=== PATIENT | male | born 1955 | race Caucasian/White ===

== ENCOUNTER 2017-12-15 18:53 | Observation (INO) ==
[2017-12-15] MEDS ORDERED: methylPREDNISolone SOD SUCC 125 MG/2 ML VIAL IV ONE (19:02)
[2017-12-15] MEDS ORDERED: diphenhydrAMINE 50 MG/ML VIAL IV ONE (19:03)
[2017-12-15] MEDS ORDERED: EPINEPHrine 1 MG/ML AMPUL IM ONE (19:03)
[2017-12-15] MEDS ORDERED: 0.9 % SODIUM CHLORIDE 1,000 ML IV ONE ×2 (19:05→20:06)
[2017-12-15] MEDS ORDERED: methylPREDNISolone SOD SUCC 125 MG/2 ML VIAL ONE (19:07)
[2017-12-15] MEDS ORDERED: diphenhydrAMINE 50 MG/ML VIAL ONE (19:08)
--- NOTE | 2017-12-15 19:42 | Emergency Department Note ---
Allergic Reaction HPI - General Chief complaint: Allergic Reaction Stated complaint: Bee Stings Time Seen by Provider: 12/15/17 19:00 Source: patient Mode of arrival: ambulatory Limitations: no limitations - History of Present Illness HPI Narrative: 62-year-old male was at home after going to the gym and went out in his yard to check on a worker. He slipped on a stone and fell scraping his right forearm. However at that time is also disturbed a wasp nests or similar he was stung 3 times. Twice on the right wrist. He went inside where his cared for him for a little bit but he and he developed hives in his throat started swelling so his brought him here. He received 25 mg of Benadryl 1 at home No previous bee sting allergy reported however he decompensated in triage and went [id number] over a minute. He was immediately brought back and resuscitation efforts were started Most history is from his as patient was somewhat incapacitated in anaphylactic shock - Related Data Home Medications Medication Instructions Recorded Confirmed ergocalciferol (vitamin D2) 50,000 5,000 unit PO BID cap 11/13/14 12/15/17 unit capsule vitamin S63-kljumxypu factor 110 1 cap PO BID 11/13/14 12/15/17 mg-0.5 mg capsule Previous Rx's Medication Instructions Recorded testosterone cypionate 100 mg/mL 150 mg IM Q2W #10 ml 09/27/16 intramuscular oil levothyroxine 200 mcg tablet 200 mcg PO QDAY #90 tab 10/14/16 carvedilol 12.5 mg tablet 12.5 mg PO BID #60 tab 10/31/17 Allergies Allergy/AdvReac Type Severity Reaction Status Date / Time bee venom protein (honey bee) Allergy Severe Anaphylaxis Verified 12/15/17 18:57 Seasonal Allergy Unknown Unknown Uncoded 10/07/16 08:28 Review of Systems Limitations: ROS unobtainable due to patients medical condition Past Medical History - Past Medical History Attestation: Yes: The following information was validated with the patient. 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/12) Cardiomyopathy (Chronic) CAD (coronary artery disease) (Chronic 08/11/06) Amblyopia (Chronic 02/19/14) Past Surgical History H/O angiography (Resolved 06/05/13) H/O cardiac catheterization (Resolved 06/07/13) History of angiography (Resolved 06/05/13) History of left heart catheterization (Resolved 06/07/13) History of umbilical hernia repair (Resolved 07/25/12) Hx of hernia repair (Resolved 07/25/12) Social History No Social History Section defined Family History Nephew Malignant neoplasm of brain Father Coronary artery disease Essential hypertension Mother Coronary artery disease Essential hypertension Brother Malignant neoplasm of lung Medical history: Reports: hypertension, hypothyroidism - Social History smoking status: Former smoker Alcohol use: Reports: None Drug use: Reports: none Physical Exam He was somewhat obtunded on my first exam and his face was cyanotic and he was having trouble breathing. Oxygen levels were in the 70s-please see resuscitation note under summary at the end of my document. After giving him oxygen epinephrine Solu-Medrol and Benadryl along with IV fluids cyanosis resolved breathing improved however hives remain from the head to the knees as well as bilateral upper extremities. He has a relatively large abrasion approximately 10 cm long and 3 cm wide very superficial with good hemostasis right forearm. He is otherwise normocephalic atraumatic. Conjunctive are mildly bilaterally injected but I do not see any trauma to here or the periorbital area. No nasal discharge or congestion. Oropharynx is pink and moist tongue is not edematous. Posterior pharynx is clear but Mallampati 3-4. Neck is supple without lymphadenopathy thyromegaly or carotid bruit. Heart is regular rate and rhythm no murmur appreciated. Lungs are clear to auscultation bilaterally without wheezes rales rhonchi. Defibrillator in place on abdomen is soft nontender nondistended. No peritoneal signs or guarding. He did have an episode of urinary incontinence when he was unconscious. Mental status is improved after getting epinephrine. No longer obtunded. Urticaria remains except face and lower legs below the knee Limitations: no limitations Course Vital Signs Pulse Rate 87 12/15/17 18:53 Respiratory Rate 23 H 12/15/17 18:53 Blood Pressure 58/35 12/15/17 18:53 Pulse Oximetry (%) 89 L 12/15/17 18:53 Pulse Rate 87 12/15/17 18:53 Respiratory Rate 23 H 12/15/17 18:53 Blood Pressure 58/35 12/15/17 18:53 Pulse Oximetry (%) 89 L 12/15/17 18:53 Allergic Reaction - Lab Data Lab results reviewed: Yes I reviewed the patient's lab results. Result diagrams: 12/15/17 19:06 12/15/17 19:06 Lab Results 12/15/17 12/15/17 12/15/17 Range/Units 19:06 19:06 19:13 WBC 8.6 (4.5-11.0) K/mcL RBC 6.88 H (4.50-5.90) M/mcL Hgb 20.6 H* (13.5-16.5) g/dL Hct 62.1 H (41.0-55.0) % MCV 90.2 (80.0-100.0) fL MCH 29.9 (26.0-34.0) pg MCHC 33.1 (31.0-36.0) g/dL RDW 14.6 H (11.5-14.5) % Plt Count 208 (140-440) K/mcL MPV 8.3 (7.4-10.4) fL Gran % 44.5 (38.0-78.0) % Lymph % (Auto) 45.5 (15.5-49.0) % [place] % (Auto) 8.8 (1.0-12.0) % Eos % (Auto) 1.0 (0.0-7.0) % Baso % (Auto) 0.2 (0.0-2.0) % Gran # 3.8 (1.8-8.0) K/mcL Lymph # (Auto) 3.9 (1.5-4.8) K/mcL [place] # (Auto) 0.8 (0.1-0.9) K/mcL Eos # (Auto) 0.1 (0.0-0.7) K/mcL Baso # (Auto) 0 (0.0-0.3) K/mcL VBG Lactic Acid 3.5 H (0.5-2.2) mmol/L Sodium 135 (133-145) mmol/L Potassium 5.1 (3.3-5.1) mmol/L Chloride 96 (96-108) mmol/L Carbon Dioxide 22 (22-30) mmol/L Anion Gap 17.0 H (8-16) BUN 11 (8-23) mg/dl Creatinine 1.3 H (0.7-1.2) mg/dl GFR Calculation 58 Glucose 103 (70-105) mg/dL Calcium 9.4 (8.6-10.4) mg/dl Total Bilirubin 0.5 (0.0-1.0) mg/dL AST 45 H (0-37) U/l ALT 31 (0-40) U/l Alkaline Phosphatase 50 (39-117) U/L Total Protein 7.1 (5.9-8.4) gm/dL Albumin 4.2 (3.2-5.2) gm/dL Globulin 2.9 (2.2-3.7) gm/dL Albumin/Globulin Ratio 1.4 (1.0-2.3) VBG is done as we had difficulty finding a pulse to get an arterial gas. PH was 7.45 PCO2 35 PO2 was 112 these values more consistent with an arterial gas and some was hyperventilated on oxygen however we know this is a VBG because we took it from a venous line - Radiology Data Radiology results reviewed: Yes I reviewed the patient's radiology results. Chest x-rays one view portable shows some pulmonary congestion but seems overexposed. Blood gas is inconsistent with clinical picture and chest x-ray so CT scan is ordered to further sort this out - EKG Data EKG attestation: Yes I reviewed and interpreted this EKG. EKG results narrative: EKG shows sinus rhythm with a rate of 88, left atrial enlargement. There is a Q -wave in V1 and V2 Critical Care Time Critical Care Time: Yes Total Critical Care Time: 45 Attestation: 45 minutes critical care time not including initial resuscitation. This includes documentation, discussion of results with the family, serial evaluation and coordination of care Disposition Pt seen by WAREHOUSE LOADER/PA only: No Clinical Impression: Urticaria, Elevated hemoglobin Anaphylaxis Qualifiers: Encounter type: initial encounter Qualified Code(s): T78.2XXA - Anaphylactic shock, unspecified, initial encounter Hymenoptera sting Qualifiers: Encounter type: initial encounter Injury intent: accidental or unintentional Qualified Code(s): T63.481A - Toxic effect of venom of other arthropod, accidental (unintentional), initial encounter Respiratory failure Qualifiers: Chronicity: acute Respiratory failure complication: hypoxia Qualified Code(s): J96.01 - Acute respiratory failure with hypoxia Summary: Initial resuscitation included epinephrine 0.3 IM injection 1, IV 25 mg Benadryl (so he received a total of 50 ), 125 mg of IV Solu-Medrol and IV fluids. He was having trouble breathing with oxygen saturations in the 70s and 80s with a cyanotic face trouble breathing with swelling of his airway mouth- this gradually improved. He was also hypotensive with a blood pressure 61/41 when he got back to the room. This went up to 79/49 and then finally 97/73 as he turned around and started improving. He then became cold and started shaking. He was given warm blankets as continued to improve He stabilized and so we were able to reduce his oxygen supplementation to 3 L. Chest x-ray showed some pulmonary congestion and his blood gas did not really fit with what we are seeing clinically so CT scan is ordered. This is pending at the time of shift change and so patient will be checked out to Dr. Uriarte for further care and disposition-he will likely need further monitoring overnight in the ICU due to this episode of anaphylactic shock Note: Hemoglobin likely elevated secondary to testosterone supplementation Disposition: Still a Patient Condition: Critical Referrals: Kelvin Elkins PA-C [Primary Care Provider] -
[2017-12-15 19:44] LABS: Basophils # (Auto) 0 K/mcL (0.0-0.3); Basophils % (Auto) 0.2 % (0.0-2.0); Eosinophils # (Auto) 0.1 K/mcL (0.0-0.7); Granulocytes % (Auto) 44.5 % (38.0-78.0); Lymphocytes # (Auto) 3.9 K/mcL (1.5-4.8); Lymphocytes % (Auto) 45.5 % (15.5-49.0); Mean Cell Volume 90.2 fL (80.0-100.0); Mean Corpuscular HGB Conc 33.1 g/dL (31.0-36.0); Mean Corpuscular Hemoglobin 29.9 pg (26.0-34.0); Monocytes # (Auto) 0.8 K/mcL (0.1-0.9); Monocytes % (Auto) 8.8 % (1.0-12.0); Platelet Count 208 K/mcL (140-440); RBC 6.88 M/mcL (4.50-5.90); Red Cell Distribution Width 14.6 % (11.5-14.5)
[2017-12-15 20:05] LABS: ALT/SGPT 31 U/l (0-40); Albumin 4.2 gm/dL (3.2-5.2); Albumin/Globulin Ratio 1.4 (1.0-2.3); Alkaline Phosphatase 50 U/L (39-117); Blood Urea Nitrogen 11 mg/dl (8-23)
--- NOTE | 2017-12-15 22:47 | Internal Med History&Physical ---
Medical - H&P: [facility] Patient information: Note initiated : 12/15/17 at 10:46 pm Service Date, if different from initiated Date: [] Patient: Jayant Andrews 62 y/o M admitted on for Bee Stings. Chief Complaint: Hives and lightheadedness after bee sting History of present illness: Mr. Andrews is a 62 year old M the history of cardiomyopathy and ventricular arrhythmia, hypertension, hypothyroidism who presented to the emergency department following a reaction to likely yellow jacket sting. History is obtained in speaking with the patient, as well as his , as well as reviewing the record. Patient returned from the gym today, when around the house to check on someone who is working there, apparently tripped and disturbed a block, which was covering a yellow jackets nest. They started swarming the patient, he ran into the house, however was stung at least 3 times, 2 in the left arm, 1 the upper torso. Patient also experienced an abrasion to the right arm when he fell. Patient initially felt okay, after about 15 minutes started to itch, and subsequently started to develop hives. He took 25 mg of diphenhydramine. He went to take a shower, however the itching worsened and his mouth started swelling. His transported him to the ED, by the time he arrived, he is starting to feel lightheaded and his vision was blurry. He continued to have hives. In the ED, upon arrival, he was cyanotic, initial blood pressure was in the 60s systolic. He received epinephrine, 125 mg of Solu-Medrol, 25 mg of diphenhydramine. Also received fluid resuscitation. His blood pressure responded to these interventions, his oxygen saturations picked up and he improved. He is now being hospitalized for further observation following anaphylaxis. Currently the patient is complaining of a dry mouth. Denies any headache, vision changes, sore throat, dyspnea, cough, sputum production, nausea, vomiting , abdominal pain, diarrhea, dysuria. He no longer has hives. He has no pruritus. There is some pain at the site of the stings. No focal neurologic symptoms. 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 No particular family history of allergic reactions Social history: The patient works in equipment rental sales. Stopped smoking 1979. He seldom drinks alcohol. Medical - H&P: Meds Home Medications Medication Instructions Recorded Confirmed Type ergocalciferol (vitamin D2) 50,000 5,000 unit PO BID cap 11/13/14 12/15/17 History unit capsule vitamin U76-vfyzioqiw factor 110 1 cap PO BID 11/13/14 12/15/17 History mg-0.5 mg capsule testosterone cypionate 100 mg/mL 150 mg IM Q2W #10 ml 09/27/16 12/15/17 Rx intramuscular oil levothyroxine 200 mcg tablet 200 mcg PO QDAY #90 tab 10/14/16 12/15/17 Rx carvedilol 12.5 mg tablet 12.5 mg PO BID #60 tab 10/31/17 12/15/17 Rx Allergies Allergy/AdvReac Type Severity Reaction Status Date / Time bee venom protein (honey bee) Allergy Severe Anaphylaxis Verified 12/15/17 18:57 Seasonal Allergy Unknown Unknown Uncoded 10/07/16 08:28 Medical - H&P: Exam - Constitutional Vitals: Pulse Resp BP Pulse Ox 81 33 H 122/77 96 12/15/17 22:44 12/15/17 22:44 12/15/17 22:44 12/15/17 22:44 Exam: GENERAL: Alert, oriented, in no acute distress at the time of my exam. Cooperative, appears stated age. HEENT: Atraumatic. PERRL, conjunctiva clear, no scleral icterus. Hearing grossly intact. Oropharynx with moist mucous membranes, no lip or gum lesions, no pharyngeal erythema or exudate. Tongue midline, palate rises symmetrically. NECK: Supple without meningismus, no thyromegaly RESPIRATORY: Breath sounds clear bilaterally without wheezes or rhonchi. Respiratory effort is unlabored. CARDIOVASCULAR: Regular rate and rhythm, no murmur gallop or rub. No peripheral edema. Carotid pulses 2+ without bruit. Pedal pulses 2+. Left subclavicular defibrillator in place. GI: Abdomen obese, soft, nontender, no guarding or rebound. Bowel sounds are present. No hepatosplenomegaly, exam is limited by body habitus. LYMPHATIC: No cervical or supraclavicular lymphadenopathy MUSCULOSKELETAL: No joint erythema or swelling, normal range of motion in extremities. Muscle mass normal. Strength 5/5 in the upper and lower extremities. SKIN: Warm, dry, no urticarial lesions. Abrasion right forearm. Skin turgor normal. NEUROLOGIC: Cranial nerves II through XII grossly intact. Sensation intact to light touch bilaterally. PSYCHIATRIC: Alert, oriented x3, normal affect, normal insight. Medical - H&P: Reslt - Labs CBC & Chem 7: 12/15/17 19:06 12/15/17 19:06 Labs: Short CBC 12/15/17 Range/Units 19:06 WBC 8.6 (4.5-11.0) K/mcL Hgb 20.6 H* (13.5-16.5) g/dL Hct 62.1 H (41.0-55.0) % Plt Count 208 (140-440) K/mcL BMP 12/15/17 19:06 Sodium 135 Potassium 5.1 Chloride 96 Carbon Dioxide 22 BUN 11 Creatinine 1.3 H Glucose 103 Calcium 9.4 Liver Function 12/15/17 Range/Units 19:06 Total Bilirubin 0.5 (0.0-1.0) mg/dL AST 45 H (0-37) U/l ALT 31 (0-40) U/l Alkaline Phosphatase 50 (39-117) U/L Albumin 4.2 (3.2-5.2) gm/dL - Imaging and Cardiology Chest x-ray Status: image reviewed by me (vascular prominence) CT scan - chest Status: image reviewed by me Additional comments: Preliminary report, diffuse bronchial wall thickening Medical - H&P: A/P (1) Polycythemia Current visit: Yes Status: Acute (2) Hymenoptera sting Current visit: Yes Status: Acute (3) Anaphylaxis Current visit: Yes Status: Acute - Narrative A/P Narrative: 62-year-old male presenting with anaphylaxis following envenomation by yellow jackets. Anaphylaxis. Resolved at this time. No current evidence of biphasic reaction, however given the severity of his presentation will monitor in the hospital overnight. Discussed need to have epinephrine pen available for treatment of any further similar episodes. The patient's currently saturating well on 2 L, may be weaned further. His radiograph was concerning for edema. Follow-up CT scan did show diffuse bronchial wall thickening. This likely is noncardiogenic edema related to his anaphylaxis. We'll need to monitor for evidence of worsening pulmonary function and development of ARDS. Plan: Hospitalized in observation, when necessary epinephrine if symptoms recur , monitor pulmonary status and oxygen needs. Envenomation by Hymenoptera. Causing anaphylaxis as above. Plan: As above. Polycythemia. Patient's hemoglobin 20, he's chronically had elevated hemoglobin over the last 3 years. He does have a history of sleep apnea, may be related to that, or to testosterone use. Primary polycythemia also possibility. Plan: We'll defer to primary care for further evaluation CODE STATUS: Full code
[2017-12-15] MEDS ORDERED: EPINEPHrine 1 MG/ML AMPUL IM PRN (23:07)
[2017-12-15] MEDS ORDERED: diphenhydrAMINE 50 MG/ML VIAL IV PRN (23:07)
[2017-12-15] MEDS ORDERED: ACETAMINOPHEN 325 MG TABLET PO PRN (23:07)
[2017-12-15] MEDS ORDERED: ONDANSETRON 4 MG/2 ML VIAL IV PRN (23:07)
[2017-12-15] MEDS ORDERED: ALBUTEROL SULFATE 2.5 MG/3 ML NEBULIZER NEB PRN (23:07)
[2017-12-16 00:02] LABS: Appearance,Urine CLEAR; Bacteria,Urine 0 /hpf (0); Bilirubin,Urine NEG (NEG); Color,Urine YELLOW; Glucose,Urine (UA) NEGATIVE (NEG); Leukocyte Esterase,Urine NEG /uL (NEG); Mucus,Urine FEW /hpf (0); Protein,Urine 30 mg/dL (NEG); Specific Gravity,Urine 1.043 (1.000-1.035); Urine Blood NEG mg/dL (<0.03); Urine Hyaline Cast 3 /lpf (0-2); Urine RBC 1 /hpf (0-1); Urine Squamous Epithelial Cell 0 /hpf (0-4); Urine WBC 1 /hpf (0-4); Urobilinogen,Urine NEG (NEG)
[2017-12-16] MEDS ORDERED: 0.9 % SODIUM CHLORIDE 10 ML SYRINGE IV SCH (06:00)
[2017-12-16 06:10] LABS: Mean Cell Volume 90.8 fL (80.0-100.0); Mean Corpuscular HGB Conc 33.3 g/dL (31.0-36.0); Mean Corpuscular Hemoglobin 30.3 pg (26.0-34.0); Platelet Count 193 K/mcL (140-440); RBC 6.39 M/mcL (4.50-5.90); Red Cell Distribution Width 14.9 % (11.5-14.5)
[2017-12-16 06:19] LABS: ALT/SGPT 27 U/l (0-40); Albumin/Globulin Ratio 1.5 (1.0-2.3); Alkaline Phosphatase 34 U/L (39-117); Blood Urea Nitrogen 11 mg/dl (8-23)
[2017-12-16 06:42] LABS: Band Neutrophils % 2 % (0-10); Lymphocytes % 4 % (15-49); Platelet Estimate NORMAL (NORMAL); RBC Morphology NORMAL (NORMAL); Segmented Neutrophils % 92 % (38-78)
--- NOTE | 2017-12-16 06:50 | XRay Report ---
CLINICAL INFORMATION: Shortness of breath COMPARISON: None. FINDINGS: Implantable cardioverter defibrillator is in satisfactory position without wire breakage. The heart is mildly enlarged. Mediastinum shows slight widening. Upper lobe pulmonary vessels show slight cephalization which is likely related to semirecumbent positioning. Lungs are clear. No effusions. IMPRESSION: Mild cardiomegaly - no acute disease Interpreted and Authenticated by: Antony Proctor 12/16/17
--- NOTE | 2017-12-16 07:16 | Cat Scan Report ---
CLINICAL INFORMATION: Shortness of breath. History of anaphylaxis COMPARISON: None. TECHNIQUE: 80 cc of Isovue-300 were injected intravenously, and 25 seconds later, 0.625 mm helical slices were obtained from the lung apices through the bases. Following reconstruction, 2.5 mm sagittal, coronal and axial reformations were processed and reviewed at lung, mediastinal and bone windows. 7 mm axial MIPS were also obtained to optimize pulmonary nodule detection. The exam was performed using radiation dose optimization techniques including, but not limited to, automated exposure control, adjustment of the mA and/or kV according to patient size and use of iterative reconstruction technique. FINDINGS: [Parenchymal windows show elevation of lung volumes and minimal wall thickening of the bronchi suggesting bronchitis or asthma. Lungs otherwise clear: there are no infiltrates or nodules. No effusions. Mediastinal windows show the thoracic aorta is normal in contour and caliber with mild diffuse intimal thickening. The pulmonary arteries are normal in contour and caliber and well-opacified without evidence of embolus. There is no adenopathy in the mediastinal hilar or axillary regions. Esophagus is grossly normal. The heart is normal in size with implantable cardioverter defibrillator in satisfactory position without evidence of electrodes, lead wires and battery pack disruption. Bones and soft tissues the chest wall are normal. Images through the upper abdomen show no abnormality. IMPRESSION: 1. Mild bronchitis or asthma 2. No evidence of pulmonary embolus or other acute process Interpreted and Authenticated by: Antony Proctor 12/16/17
[2017-12-16] MEDS ORDERED: LEVOTHYROXINE 100 MCG TABLET PO SCH (07:30)
[2017-12-16] MEDS ORDERED: CARVEDILOL 12.5 MG TABLET PO SCH (08:00)
--- NOTE | 2017-12-16 10:33 | Discharge Summary ---
Medical - DS: Prov Patient information: Note initiated : 12/16/17 at 10:32 am Service Date, if different from initiated Date: [] Patient: Jayant Andrews 62 y/o M admitted on 12/15/17 for Bee Stings/ Allergic Reaction . Date of admission: 12/15/17 22:55 Discharge date: 12/16/17 Primary care physician: Kelvin Elkins; Nathanael Lamb Admitting clinician: Awilda Quiñones Consults: 12/15/17 20:18 Consult to Physician [CONS] Stat Comment: Consulting Provider: Awilda Quiñones Reason For Exam: Physician to Consult Attending physician on discharge: Awilda Quiñones Medical - DS: Meds - Discharge Medications Prescriptions: EPINEPHrine [Epipen] 0.3 mg IM ONCE PRN #1 auto.injct PRN Reason: Anaphylaxis Active and Home Medications: Home Medications ergocalciferol (vitamin D2) 50,000 unit capsule 5,000 unit PO BID cap 11/13/14 [History Confirmed 12/15/17 Last Taken 03/26/16 06:00] vitamin A25-[id number] factor 110 mg-0.5 mg capsule 1 cap PO BID 11/13/14 [ History Confirmed 12/15/17 Last Taken 03/26/16 06:00] testosterone cypionate 100 mg/mL intramuscular oil 150 mg IM Q2W #10 ml [Rx Confirmed 12/15/17 Last Taken Unknown] levothyroxine 200 mcg tablet 200 mcg PO QDAY #90 tab 10/14/16 [Rx Confirmed 07/03 Last Taken Unknown] carvedilol 12.5 mg tablet 12.5 mg PO BID #60 tab 10/31/17 [Rx Confirmed Last Taken Unknown] Medical - DS: Hosp Hospital course: Mr. Andrews is a 62 year old M who was hospitalized following presentation to the ED with anaphylactic reaction to yellow jacket (versus wasp) stings. The patient had fairly rapid reaction, initially with pruritus, then hives, then developed swelling in his mouth. Upon presentation to the ED, he was cyanotic, saturations in the 70s, systolic blood pressure in the 60s. He received IM epinephrine, Solu-Medrol, diphenhydramine with good recovery. He was hospitalized overnight, had no evidence of biphasic anaphylactic symptoms. His initial chest radiograph as well as chest CT showed some evidence of edema competently bronchial wall, this was likely related to his anaphylactic reaction. He was saturating well on room air with normal lung exam at the time of discharge, no evidence of progression to noncardiogenic pulmonary edema. The patient was counseled on the need to have epinephrine on hand for any future reactions. A prescription for epinephrine autoinjector was given at discharge. I've advised him to follow-up with his outpatient physician for referral to allergy/immunology for further evaluation. The patient was also noted to have polycythemia with hemoglobin of 19. This appears to be a bit chronic. He does have sleep apnea, is on testosterone replacement which may in part explain his polycythemia. However he has not been evaluated for primary polycythemia. I've asked him to follow-up with primary care and this regard. Discharge diagnosis: Anaphylaxis secondary to Hymenoptera envenomation Secondary discharge diagnosis: Polycythemia, undetermined etiology Cardiomyopathy with ICD in place - Time Spent with Patient Total time spent providing and/or coordinating discharge services: Greater than 30 minutes Medical - DS: Exam - Constitutional Vitals: Vital Signs Temp Pulse Pulse Pulse Resp BP BP 12/16/17 09:37 90 12/16/17 08:30 66 16 12/16/17 07:20 16 12/16/17 06:59 98.4 F 12 120/84 12/16/17 06:00 12/16/17 04:01 98.8 F 18 116/85 12/16/17 00:01 17 119/83 12/15/17 23:16 16 124/84 12/15/17 23:07 98.8 F 18 134/90 12/15/17 23:03 81 33 H 122/77 12/15/17 22:55 98.8 F 18 134/90 12/15/17 22:44 81 33 H 122/77 12/15/17 22:31 73 17 122/77 12/15/17 22:16 78 20 121/72 12/15/17 22:14 78 23 H 103/79 12/15/17 22:01 79 20 103/79 12/15/17 21:46 26 H 118/82 12/15/17 21:42 81 19 112/68 12/15/17 21:31 79 17 112/68 12/15/17 21:16 81 16 111/83 12/15/17 21:14 75 22 12/15/17 21:01 83 15 106/77 12/15/17 20:56 81 12 111/74 12/15/17 20:43 78 19 112/91 12/15/17 20:40 28 H 107/72 12/15/17 20:12 71 13 120/74 12/15/17 20:02 75 15 102/80 12/15/17 19:51 72 16 123/74 12/15/17 19:41 67 18 130/71 12/15/17 19:39 65 15 114/101 12/15/17 19:31 69 21 149/138 12/15/17 19:29 73 18 150/131 12/15/17 19:26 76 15 96/73 12/15/17 19:22 79 17 89/67 12/15/17 19:19 78 17 87/64 12/15/17 19:09 78 22 97/73 12/15/17 19:07 78 21 79/49 12/15/17 19:05 83 23 H 64/48 12/15/17 19:01 87 29 H 65/49 12/15/17 18:53 87 23 H 58/35 Pulse Ox 12/16/17 09:37 12/16/17 08:30 94 12/16/17 07:20 94 12/16/17 06:59 96 12/16/17 06:00 96 12/16/17 04:01 96 12/16/17 00:01 97 12/15/17 23:16 92 12/15/17 23:07 94 12/15/17 23:03 96 12/15/17 22:55 98 12/15/17 22:44 96 12/15/17 22:31 97 12/15/17 22:16 96 12/15/17 22:14 96 12/15/17 22:01 96 12/15/17 21:46 12/15/17 21:42 96 12/15/17 21:31 96 12/15/17 21:16 96 12/15/17 21:14 96 12/15/17 21:01 94 12/15/17 20:56 95 12/15/17 20:43 96 12/15/17 20:40 12/15/17 20:12 97 12/15/17 20:02 98 12/15/17 19:51 97 12/15/17 19:41 97 12/15/17 19:39 97 12/15/17 19:31 97 12/15/17 19:29 96 12/15/17 19:26 97 12/15/17 19:22 97 12/15/17 19:19 97 12/15/17 19:09 96 12/15/17 19:07 94 12/15/17 19:05 94 12/15/17 19:01 94 12/15/17 18:53 89 L Intake and Output 12/15/17 12/16/17 12/16/17 21:59 05:59 13:59 Intake Total 1999 200 / 200 Output Total 525 / 525 Balance 1475 / 1475 200 / 200 Intake: IV 1999 Sodium Chloride 0.9% 1,000 ml @ 1999 Wide Open IV BOLUS ONE Rx#: [id number] Oral 200 / 200 Output: Void Amount 525 / 525 Other: Meal Breakfast Percent of Meal Consumed 100% Feeding Ability Independent Stool Size Large Stool Color Brown Stool Consistency Soft Formed # Voids 1 # Bowel Movements 1 Weight 240 lb 237 lb 6.4 oz Additional comments: General: Alert, oriented, no acute distress Chest: Clear to auscultation with good air movement, no wheezes, no stridor, respirations are unlabored Cardiovascular: Regular rate and rhythm, no murmur Abdomen: Soft, nontender Neuro: Alert, oriented, moves all extremities equally, nonfocal. Medical - DS: Data Labs on day of discharge: Labs from last 24 hours 12/16/17 12/16/17 12/15/17 04:24 04:24 22:45 WBC 11.1 H RBC 6.39 H Hgb 19.3 H Hct 58.0 H MCV 90.8 MCH 30.3 MCHC 33.3 RDW 14.9 H Plt Count 193 MPV 8.5 Gran % Lymph % (Auto) [place] % (Auto) Eos % (Auto) Baso % (Auto) Gran # Lymph # (Auto) [place] # (Auto) Eos # (Auto) Baso # (Auto) Total Counted 100 Seg Neutrophils % 92 H Band Neutrophils % 2 Lymphocytes % 4 L Reactive Lymphocytes 2 Platelet Estimate Normal RBC Morphology Normal VBG Lactic Acid Sodium 135 Potassium 4.4 Chloride 99 Carbon Dioxide 23 Anion Gap 13.0 BUN 11 Creatinine 0.9 GFR Calculation 91 Glucose 139 H Calcium 8.9 Total Bilirubin 0.9 AST 31 ALT 27 Alkaline Phosphatase 34 L Total Protein 6.7 Albumin 4.0 Globulin 2.7 Albumin/Globulin Ratio 1.5 Urine Color Yellow Urine Appearance Clear Urine pH 6.0 Ur Specific [place] 1.043 H Urine Protein 30 A Urine Glucose (UA) Negative Urine Ketones Neg Urine Occult Blood Neg Urine Nitrate Neg Urine Bilirubin Neg Urine Urobilinogen Neg Ur Leukocyte Esterase Neg Urine RBC 1 Urine WBC 1 Ur Squamous Epith Cells 0 Urine Bacteria 0 Hyaline Casts 3 H Urine Mucus Few Ur Culture Indicated? No 12/15/17 12/15/17 12/15/17 19:13 19:06 19:06 WBC 8.6 RBC 6.88 H Hgb 20.6 H* Hct 62.1 H MCV 90.2 MCH 29.9 MCHC 33.1 RDW 14.6 H Plt Count 208 MPV 8.3 Gran % 44.5 Lymph % (Auto) 45.5 [place] % (Auto) 8.8 Eos % (Auto) 1.0 Baso % (Auto) 0.2 Gran # 3.8 Lymph # (Auto) 3.9 [place] # (Auto) 0.8 Eos # (Auto) 0.1 Baso # (Auto) 0 Total Counted Seg Neutrophils % Band Neutrophils % Lymphocytes % Reactive Lymphocytes Platelet Estimate RBC Morphology VBG Lactic Acid 3.5 H Sodium 135 Potassium 5.1 Chloride 96 Carbon Dioxide 22 Anion Gap 17.0 H BUN 11 Creatinine 1.3 H GFR Calculation 58 Glucose 103 Calcium 9.4 Total Bilirubin 0.5 AST 45 H ALT 31 Alkaline Phosphatase 50 Total Protein 7.1 Albumin 4.2 Globulin 2.9 Albumin/Globulin Ratio 1.4 Urine Color Urine Appearance Urine pH Ur Specific [place] Urine Protein Urine Glucose (UA) Urine Ketones Urine Occult Blood Urine Nitrate Urine Bilirubin Urine Urobilinogen Ur Leukocyte Esterase Urine RBC Urine WBC Ur Squamous Epith Cells Urine Bacteria Hyaline Casts Urine Mucus Ur Culture Indicated? - Imaging and Cardiology Chest x-ray Additional comments: FINDINGS: Implantable cardioverter defibrillator is in satisfactory position without wire breakage. The heart is mildly enlarged. Mediastinum shows slight widening. Upper lobe pulmonary vessels show slight cephalization which is likely related to semirecumbent positioning. Lungs are clear. No effusions. IMPRESSION: Mild cardiomegaly - no acute disease CT scan - chest Additional comments: IMPRESSION: 1. Mild bronchitis or asthma 2. No evidence of pulmonary embolus or other acute process Medical - DS: A/P - Patient/Caregiver Discharge Instructions Activity: increase activity as tolerated Diet: Regular Diet Additional Instructions: Follow-up with Dr. Lamb for: 1. Referral to flour mixer 2. Evaluation of polycythemia (elevated red blood cell count) - Problem Maintenance (1) Polycythemia Status: Chronic (2) Hymenoptera sting Status: Resolved Qualifiers: Encounter type: initial encounter Injury intent: accidental or unintentional Qualified Code(s): T63.481A - Toxic effect of venom of other arthropod, accidental (unintentional), initial encounter (3) Anaphylaxis Status: Resolved Qualifiers: Encounter type: initial encounter Qualified Code(s): T78.2XXA - Anaphylactic shock, unspecified, initial encounter - Follow up Plan Follow up with: Nathanael Lamb MD [Physician] - (710 days) Disposition: Home, Self-Care Prognosis: Good Rehab Potential: Good Overall status at discharge: patient is back to baseline Medical - DS: Qual - VTE Deep Vein Thrombosis/Pulmonary Embolism Present on Admission: No
== END 2017-12-16 11:50 | disposition home or self-care (01) ==
LOC: ED 18:53 → ICU 18:53
PROVIDERS: ADMIT Internal Medicine; ATTEND Internal Medicine